=== PATIENT | female | born 1990 | race American Indian/Alaskan Native ===

== ENCOUNTER 2019-07-21 03:38 | Emergency (ER) | payer OTHER ==
[2019-07-21 03:46] VITALS: BP 114/81
[2019-07-21] MEDS ORDERED: IPRATROPIUM 0.02% NEBU 2.5 ML IH ONE (03:52)
[2019-07-21] MEDS ORDERED: ALBUTEROL 2.5 MG/3 ML NEBU IH ONE (03:52)
[2019-07-21] MEDS ORDERED: dexAMETHasone 20 MG/5 ML VIAL IM ONE (03:52)
--- NOTE | 2019-07-21 04:00 | Emergency Department Report ---
ED Asthma HPI - General Chief Complaint: Dyspnea/Respdistress Stated Complaint: SHORTNESS OF BREATH Time Seen by Provider: 07/21/19 03:48 Source: patient Mode of arrival: Ambulatory Limitations: No Limitations - History of Present Illness Initial Comments: Patient is a 29-year-old female presents emergency room complaints of an asthma exacerbation that began yesterday. She has associated shortness of breath and wheezing. She states that she uses an albuterol inhaler and another type of disc inhaler but she is not sure what is called. She denies any fever, nausea, vomiting, diarrhea, cough, chest pain. She states her only other past medical history is seizures. She states she has an allergy to clindamycin that it causes a rash. She states her last menstrual cycle was 07/07/2019. She denies any recent travel. 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 - Related Data Home Medications Medication Instructions Recorded Confirmed Last Taken Phenytoin [Dilantin] 300 mg PO DAILY 06/12/13 11/22/13 05/22/13 22:00 Albuterol INH(or & Nicu Only) 2 puff INHALATION Q4H PRN 11/22/13 11/22/13 Unknown [ProAir HFA Inhaler] Previous Rx's Medication Instructions Recorded Last Taken Type Acetaminophen/Codeine [Tylenol #3] 1 tab PO Q6H PRN #14 tab 11/23/13 Unknown Rx Penicillin Vk [Veetids TAB] 500 mg PO BID #20 tablet 11/23/13 Unknown Rx predniSONE [Deltasone] 40 mg PO QDAY 5 Days #10 tab 07/21/19 Unknown Rx Allergies Allergy/AdvReac Type Severity Reaction Status Date / Time No Known Allergies Allergy Verified 06/12/13 05:40 ED Review of Systems ROS: Stated complaint: SHORTNESS OF BREATH Other details as noted in HPI Comment: All other systems reviewed and negative ED Past Medical Hx - Past Medical History Hx Seizures: Yes Hx Asthma: Yes Additional medical history: Epilespy - Social History Smoking Status: Never Smoker Substance Use Type: Alcohol - Medications Home Medications: Home Medications Medication Instructions Recorded Confirmed Last Taken Type Phenytoin [Dilantin] 300 mg PO DAILY 06/12/13 11/22/13 05/22/13 22:00 History Albuterol INH(or & Nicu Only) 2 puff INHALATION Q4H PRN 11/22/13 11/22/13 Unknown History [ProAir HFA Inhaler] Acetaminophen/Codeine [Tylenol #3] 1 tab PO Q6H PRN #14 tab 11/23/13 Unknown Rx Penicillin Vk [Veetids TAB] 500 mg PO BID #20 tablet 11/23/13 Unknown Rx predniSONE [Deltasone] 40 mg PO QDAY 5 Days #10 tab 07/21/19 Unknown Rx ED Physical Exam - General Limitations: No Limitations General appearance: alert, in no apparent distress - Head Head exam: Present: atraumatic, normocephalic - Eye Eye exam: Present: normal appearance - ENT ENT exam: Present: mucous membranes moist - Respiratory Respiratory exam: Present: wheezes (mild expiratory wheeze bilaterally), prolonged expiratory. Absent: respiratory distress, rales, rhonchi, stridor, chest wall tenderness, accessory muscle use, decreased breath sounds - Cardiovascular Cardiovascular Exam: Present: regular rate, normal rhythm, normal heart sounds. Absent: systolic murmur, diastolic murmur, rubs, gallop - Neurological Exam Neurological exam: Present: alert, oriented X3 - Psychiatric Psychiatric exam: Present: normal affect, normal mood - Skin Skin exam: Present: warm, dry, intact ED Course Vital Signs 07/21/19 07/21/19 07/21/19 03:44 04:06 04:42 Temperature 98.2 F Pulse Rate 84 110 H Pulse Rate [ 91 H Bilateral Throughout] Respiratory 20 18 Rate Respiratory 24 Rate [Bilateral Throughout] Blood Pressure 114/81 O2 Sat by Pulse 98 100 Oximetry ED Medical Decision Making - Medical Decision Making Patient is a 29-year-old female presents emergency room complaints of an asthma exacerbation that began yesterday. She has associated shortness of breath and wheezing. She states that she uses an albuterol inhaler and another type of disc inhaler but she is not sure what is called. She denies any fever, nausea, vomiting, diarrhea, cough, chest pain. She states her only other past medical history is seizures. She states she has an allergy to clindamycin that it causes a rash. She states her last menstrual cycle was 07/07/2019. She denies any recent travel. 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 Vitals are normal. On exam mild expiratory wheezing, no respiratory distress, no accessory muscle use, no rhonchi, no rales. examination consistent with mild asthma exacerbation, no clinical s/sx PNA, no hypoxia, afebrile. Patient given nebulizer treatment and steroids and wheezing has completely resolved, patient has very good air movement, patient is feeling much better. Patient given prescription for prednisone. Advised patient Please take medication as prescribed. Please use your inhaler as needed. Follow-up with a primary care doctor. Return to the emergency room for any new or worsening symptoms. Critical care attestation.: If time is entered above; I have spent that time in minutes in the direct care of this critically ill patient, excluding procedure time. ED Disposition Clinical Impression: Asthma exacerbation Qualifiers: Asthma severity: unspecified severity Asthma persistence: unspecified Qualified Code(s): J45.901 - Unspecified asthma with (acute) exacerbation Disposition: TO HOME OR SELFCARE Is pt being admited?: No Does the pt Need Aspirin: No Condition: Stable Instructions: Asthma (ED) Additional Instructions: Please take medication as prescribed. Please use your inhaler as needed. Follow-up with a primary care doctor. Return to the emergency room for any new or worsening symptoms. Prescriptions: predniSONE [Deltasone] 40 mg PO QDAY 5 Days #10 tab Referrals: GLENYS HDZ MD [Staff Physician] - 3-5 Days [facility] [Provider Group] - 3-5 Days [facility] [Outside] - 3-5 Days Forms: Work/School Release Form(ED) Time of Disposition: 04:31 Print Language: MAORI
== END 2019-07-21 04:42 | disposition home or self-care (01) ==
LOC: ED 03:38
DX: J45.901 Unspecified asthma with (acute) exacerbation (principal); G40.909 Epilepsy, unspecified, not intractable, without status epilepticus; Z79.899 Other long term (current) drug therapy
CPT/HCPCS: 94640; 96372; 99282; J1100; 94644